=== PATIENT | female | born 1985 | race Caucasian/White ===

== ENCOUNTER 2020-08-30 14:04 | Inpatient (IN) | payer MEDICAID ==
[~2020-08-30] VITALS: Ht 162.6 cm; Wt 108.4 kg
[2020-08-30 18:00] VITALS: BP 118/75
[2020-08-30 18:10] VITALS: BP 118/75
--- NOTE | 2020-08-30 18:10 | NUR ---
MS RN NOTES DIRECT ADMIT FROM [facility] ER, REPORT GIVEN BY JULI WOMACK. PATIENT ALERT ORIENTED X 4. NO ACUTE DISTRESS NOTED. BREATHING UNLABORED. NO SOB NOTED. DENIED PAIN AT THIS TIME, NO FACIAL GRIMACING NOTED. IV ACCESS ON THE RFA IV ACCESS PATENT AND INTACT, NO REDNESS, NO SWELLING NOTED. ORIENTED TO THE ROOM, SHOW HOW TO USE CALL LIGHT , PLACED WITHIN REACH. SAFETY MEASURES IN PLACE. WILL CONTINUE TO MONITOR ACCORDINGLY.
--- NOTE | 2020-08-30 18:15 | NUR ---
MS RN NOTES PAGED BLAST FURNACE KEEPER SELIN DEL ROSARIO TO NOTIFY ON PATIENT'S ARRIVAL AND ORDERS. AWAITING FOR CALL BACK.
--- NOTE | 2020-08-30 18:35 | NUR ---
MS RN NOTES PATIENT SEEN AND EVALUATED BY REGIONAL LIAISON SELIN DEL ROSARIO, NO NEW ORDERS MADE AT THIS TIME. RALPH DEL ROSARIO TO PUT ORDERS IN.
[2020-08-30] MEDS ORDERED: MORPHINE SULFATE INJ 2 MG/ML DISP.SYRIN IV PRN (19:00)
[2020-08-30] MEDS ORDERED: Z GUARD REMEDY 2 OZ OINT TP PRN (19:00)
[2020-08-30] MEDS ORDERED: ONDANSETRON HCL/PF 4 MG/2 ML VIAL IVP PRN (19:00)
[2020-08-30] MEDS ORDERED: IV NS 0.9% 1,000 ML IV PRN (19:00)
--- NOTE | 2020-08-30 19:00 | NUR ---
MS RN NOTES PATIENT IN BED ALERT ORIENTED X 4. NO ACUTE DISTRESS NOTED. BREATHING UNLABORED. IV ACCESS PATENT AND INTACT, NO REDNESS, NO SWELLING NOTED. PATIENT COMFORTABLE. NEEDS ATTENDED AND ANTICIPATED.CALL LIGHT WITHIN REACH. WILL ENDORSE TO NIGHT NURSE FOR CONTINUITY OF CARE AND ADMISSION..
--- NOTE | 2020-08-30 19:30 | NUR ---
MS/RN OPENING NOTE S RECEIVED PATIENT IN BED RESTING. PATIENT IS ALERT AND ORIENTED X 4. PATIENT BREATHING IS EVEN AND UNLABORED. PATIENT IN NO SIGNS OF RESPIRATORY DISTRESS OR SOB NOTED. PATIENT HAS IV ACCESS INTACT FLUSHING WELL. PATIENT IN NO ACUTE DISTRESS. SAFETY MEASURES ARE IN PLACE, BED IS LOCKED AND PLACED IN THE LOW POSITION, SIDE RAILS UP X 2, CALL LIGHT WITHIN REACH. WILL CONTINUE TO MONITOR.
[2020-08-30 20:00] VITALS: BP 113/69
[2020-08-30] MEDS: METRONIDAZOLE 500MG/ NS 100ML 500 MG in PREMIX 1 EA IV SCH (20:38)
[2020-08-31] MEDS: METRONIDAZOLE 500MG/ NS 100ML 500 MG in PREMIX 1 EA IV SCH ×3 (04:37→20:05)
--- NOTE | 2020-08-31 06:55 | NUR ---
MS/RN CLOSING PATIENT IN BED RESTING. PATIENT IS ALERT AND ORIENTED X 4. PATIENT BREATHING IS EVEN AND UNLABORED. PATIENT IN NO SIGNS OF RESPIRATORY DISTRESS OR SOB NOTED. PATIENT HAS IV ACCESS INTACT FLUSHING WELL RUNNING NS AT 75 CC/HR. PATIENT IN NO ACUTE DISTRESS. PATIENT NPO SINCE 1999HRS 08/30/20. SAFETY MEASURES ARE IN PLACE, BED IS LOCKED AND PLACED IN THE LOW POSITION, SIDE RAILS UP X 2, CALL LIGHT WITHIN REACH. WILL ENDORSE CARE TO DAY SHIFT NURSE.
[2020-08-31 07:03] LABS: BASOPHILS % (AUTO) 0.5 % (0.0-2.0); EOSINOPHILS % (AUTO) 1.8 % (0.0-6.0); HEMATOCRIT 36 % (33-45); HEMOGLOBIN 12.1 g/dL (11.5-14.8); LYMPHOCYTES # (AUTO) 1.6 /CMM (0.8-4.8); LYMPHOCYTES % (AUTO) 22.1 % (20.0-44.0); MEAN CORPUSCULAR HGB CONC 33 g/dl (31.0-36.0); MEAN CORPUSCULAR VOLUME 83 fL (82-100); MONOCYTES # (AUTO) 0.3 /CMM (0.1-1.30); MONOCYTES % (AUTO) 4.5 % (2.0-12.0); NEUTROPHILS % (AUTO) 71.1 % (43.0-81.0); PLATELET COUNT (AUTO) 224 /CMM (150-450); RED BLOOD CELL COUNT(AUTO) 4.38 MIL/uL (4.0-5.2)
[2020-08-31 07:21] LABS: ALBUMIN 3.2 g/dL (3.4-5.0); BILIRUBIN,TOTAL 0.5 mg/dL (0.2-1.0); CALCIUM, SERUM 8.5 mg/dL (8.5-10.1); CREATININE 0.6 mg/dL (0.6-1.3); MAGNESIUM 2.3 mg/dL (1.8-2.4); PHOSPHORUS 3.8 mg/dL (2.5-4.9); POTASSIUM 3.4 mmol/L (3.5-5.1); TOTAL PROTEIN, SERUM 6.8 g/dL (6.4-8.2)
[2020-08-31 07:32] LABS: THYROID STIMULATING HORMONE 1.141 uIU/mL (0.358-3.74)
[2020-08-31 08:00] VITALS: BP 109/67
--- NOTE | 2020-08-31 08:05 | NUR ---
RN OPENING NOTE S RECEIVED PT IN BED AWAKE, A/O X4. STABLE ON ROOM AIR. NO SOB OR ANY RESPIRATORY DISTRESS NOTED. IV ACCESS INTACT, PATENT AND FLUSHING WELL. NO PAIN REPORTED AT THIS TIME. SAFETY MEASURES IN PLACE. CALL LIGHT WITHIN REACH. BED LOCKED AND IN LOWEST POSITION [facility] SIDE RAILS UP X2. WILL CONTINUE TO MONITOR.
[2020-08-31] MEDS ORDERED: ANESTHESIA TRAY IN PYXIS 1 EA TRAY MC ONE (08:29)
[2020-08-31] MEDS ORDERED: LIDOCAINE 1% INJ 50 ML MDV IJ ONE (08:29)
[2020-08-31] MEDS ORDERED: BUPIVACAINE MPF W/EPI 0.25% 30 ML VIAL ONE (08:29)
[2020-08-31 08:50] LABS: BILIRUBIN,URINE SMALL (NEGATIVE); LEUKOCYTE ESTERASE ,URINE MODERATE (NEGATIVE); NITRITE, URINE NEGATIVE (NEGATIVE); PH,URINE 6.5 (5.0-8.0); PROTEIN,URINE TRACE mg/dl (NEGATIVE); UGLUCOSE NEGATIVE (NEGATIVE); UROBILINOGEN,URINE 0.2 EU/dL (0.2)
[2020-08-31] MEDS ORDERED: FENTANYL PF 100MCG/2ML AMPUL ONE (08:53)
[2020-08-31] MEDS ORDERED: MIDAZOLAM HCL 2 MG/2ML VIAL ONE (08:53)
[2020-08-31] MEDS ORDERED: SUCCINYLCHOLINE CHLORIDE 20 MG/ML VIAL ONE (08:54)
[2020-08-31] MEDS ORDERED: ROCURONIUM BROMIDE 50 MG/5 ML ONE (08:54)
[2020-08-31 08:57] LABS: COLOR,URINE RED (YELLOW)
[2020-08-31 08:59] LABS: BACTERIA,URINE None seen /HPF (None Seen); RBC,URINE TOO NUMEROUS TO COUN /HPF (0-2); SQUAMOUS EPITHELIAL CELL,UR Few /HPF (None Seen)
[2020-08-31] MEDS: POTASSIUM CL. PREMIX PERIPHER. 50 ML IV SCH ×2 (11:31→13:14)
[2020-08-31] MEDS: PANTOPRAZOLE 40 MG VIAL IV SCH (11:31)
[2020-08-31] MEDS: CEFTRIAXONE 2 G in IV D5W 100 ML IV SCH (14:05)
--- NOTE | 2020-08-31 18:49 | NUR ---
RN CLOSING NOTES S/P LAPAROSCOPIC APPENDECTOMY. PT RESTING IN BED AWAKE, A/O X4. STABLE ON ROOM AIR. NO SOB OR ANY RESPIRATORY DISTRESS NOTED. IV ACCESS INTACT, PATENT AND FLUSHING WELL. NO PAIN REPORTED AT THIS TIME. SAFETY MEASURES IN PLACE. CALL LIGHT WITHIN REACH. BED LOCKED AND IN LOWEST POSITION [facility] SIDE RAILS UP X2. WILL ENDORSE TO NIGHT NURSE FOR [place].
--- NOTE | 2020-08-31 19:30 | NUR ---
MS/RN OPENING NOTES PATIENT IN BED RESTING. PATIENT IS ALERT AND ORIENTED X 4. PATIENT BREATHING IS EVEN AND UNLABORED. PATIENT IN NO SIGNS OF RESPIRATORY DISTRESS OR SOB NOTED. PATIENT HAS IV ACCESS INTACT FLUSHING WELL. PATIENT IN NO ACUTE DISTRESS. NO ACTIVE BLEEDING NOTED AT SURGICAL SITE. SAFETY MEASURES ARE IN PLACE, BED IS LOCKED AND PLACED IN THE LOW POSITION, SIDE RAILS UP X 2, CALL LIGHT WITHIN REACH. WILL CONTINUE TO MONITOR.
[2020-08-31 20:00] VITALS: BP 137/75
--- NOTE | 2020-08-31 21:02 | NUR ---
PHONE NUMBER UPDATE MS/RN NOTES PATIENT WOULD LIKE FOR STAFF TO CONTACT [facility] [facility] AT FOLLOWING NUMBER
[2020-08-31] MEDS ORDERED: ATORVASTATIN 10 MG TABLET PO SCH (22:00)
[2020-08-31] MEDS: ACETAMINOPHEN 325 MG TABLET PO PRN (22:08)
[2020-09-01] MEDS: METRONIDAZOLE 500MG/ NS 100ML 500 MG in PREMIX 1 EA IV SCH ×2 (04:51→11:31)
--- NOTE | 2020-09-01 06:44 | NUR ---
MS/RN CLOSING NOTES PATIENT IN BED RESTING. PATIENT IS ALERT AND ORIENTED X 4. PATIENT BREATHING IS EVEN AND UNLABORED. PATIENT IN NO SIGNS OF RESPIRATORY DISTRESS OR SOB NOTED. PATIENT HAS IV ACCESS INTACT FLUSHING WELL. PATIENT IN NO ACUTE DISTRESS. NO ACTIVE BLEEDING NOTED AT SURGICAL SITE NOTED. ALL NEEDS HAVE BEEN MET DURING SHIFT. SAFETY MEASURES ARE IN PLACE, BED IS LOCKED AND PLACED IN THE LOW POSITION, SIDE RAILS UP X 2, CALL LIGHT WITHIN REACH. WILL ENDORSE CARE TO DAY SHIFT NURSE.
[2020-09-01 06:59] LABS: CALCIUM, SERUM 7.8 mg/dL (8.5-10.1); CREATININE 0.6 mg/dL (0.6-1.3); POTASSIUM 3.6 mmol/L (3.5-5.1)
--- NOTE | 2020-09-01 07:15 | NUR ---
RN NOTES PATIENT IN BED RESTING, AWAKE AND VERBALLY RESPONSIVE. ALERT AND ORIENTED X4, ABLE TO MAKE NEEDS KNOWN. BREATHING IS EVEN AND UNLABORED, TOLERATING ROOM AIR, NO SOB. IV ACCESS ON RFA AND L HAND INTACT AND PATENT. S/P LAP APPENDECTOMY, NO BLEEDING NOTED AT SURGICAL SITE. PATIENT VERBALIZED SORENESS BUT NO COMPLAINT OF PAIN; OFFERED PAIN MEDICATION BUT POLITELY REFUSED AT THIS TIME. SAFETY MEASURES IN PLACE: BED LOCKED AND PLACED IN THE LOWEST POSITION, SIDE RAILS UP X2, CALL LIGHT WITHIN REACH. WILL CONTINUE TO MONITOR.
[2020-09-01 08:00] VITALS: BP 134/69
[2020-09-01] MEDS: PANTOPRAZOLE 40 MG VIAL IV SCH (08:31)
[2020-09-01] MEDS: ACETAMINOPHEN 325 MG TABLET PO PRN (08:39)
[2020-09-01] MEDS ORDERED: METR500T PO (10:06)
[2020-09-01] MEDS ORDERED: AMOX-427 PO (10:06)
[2020-09-01] MEDS ORDERED: ATOR10TA PO (10:06)
--- NOTE | 2020-09-01 10:50 | NUR ---
RN NOTES PATIENT WAS SEEN BY RALPH KAUFMAN, C/O DR. DOBBS; SURGICAL SITE CHECKED, NO BLEEDING NOTED. STERI-STRIPS APPLIED BY CELL OPERATION SUPERVISOR.
[2020-09-01] MEDS: CEFTRIAXONE 2 G in IV D5W 100 ML IV SCH (10:59)
--- NOTE | 2020-09-01 12:30 | NUR ---
RN NOTES DIET UPGRADED TO [facility] SOFT PATIENT IS ABLE TO TOLERATE SOLID FOOD EARLIER (PATIENT ATE CRACKERS); REQUESTED NEW LUNCH TRAY FROM DIETARY.
--- NOTE | 2020-09-01 14:05 | NUR ---
OTTER TRAWLER [place] NOTES PATIENT WAS SEEN BY MD W/ ORDER FOR DISCCHARGE TO HOME W/ SELF-CARE. DISCHARGE INSTRUCTIONS AND EDUCATION PROVIDED TO PATIENT. DISCHARGE FORM AND BELONGINGS LIST FORM SIGNED BY PATIENT; ALL BELONGINGS ACCOUNTED FOR. NO SKIN ISSUES NOTED; SURGICAL SITE INTACT AND NO BLEEDING; AFTER-CARE AND POST-OP INSTRUCTIONS GIVEN TO PATIENT. IV LINE AND NAME [facility] REMOVED. ACCOMPANIED TO THE LOBBY AND PICKED UP BY [facility]BERT, , VIA PRIVATE CAR. CHARGE NURSE AND MD AWARE OF DISCHARGE.
== END 2020-09-01 14:00 | disposition home or self-care (01) | DRG 234 ==
LOC: MED 17:43
PROVIDERS: ADMIT Hospitalist; ATTEND Hospitalist
PROC: 0DTJ4ZZ Resection of Appendix, Percutaneous Endoscopic Approach (ICD-10-PCS; principal; 2020-08-31)
DX: K35.80 Unspecified acute appendicitis (principal); E66.01 Morbid (severe) obesity due to excess calories; Z68.41 Body mass index [BMI] 40.0-44.9, adult; Z98.891 History of uterine scar from previous surgery; Z20.822 Contact with and (suspected) exposure to COVID-19; N73.6 Female pelvic peritoneal adhesions (postinfective); E87.6 Hypokalemia; E78.5 Hyperlipidemia, unspecified; N39.0 Urinary tract infection, site not specified
CPT/HCPCS: 36415; 80048-TC; 80053-TC; 80061-TC; 81001; 83735-TC; 84100-TC; 84443-TC; 84703-TC; 85025-TC; 85730-TC; 87086-TC; 88304-TC; A4216; C9113; G0378; J0330; J0696; J1100; J1885; J2250; J2405; J2704; J3010; J3480; J3490; J7030; J7050; J7060